=== PATIENT | female | born 1950 | race African-American/Black ===

== ENCOUNTER 2016-09-18 09:07 | Inpatient (IN) | payer OTHER, MEDICARE ==
[~2016-09-18] VITALS: Ht 162.6 cm; Wt 80.0 kg
[2016-11-30] MEDS ORDERED: MULT1TAB59 PO (09:43)
[2016-11-30] MEDS ORDERED: METF1000 PO (09:43)
[2016-11-30] MEDS ORDERED: LISI40TA PO (09:43)
[2016-11-30] MEDS ORDERED: ATOR40TA16 PO (09:43)
[2016-11-30] MEDS ORDERED: METO100T PO (09:43)
[2016-11-30] MEDS ORDERED: GLIP10TA6 PO (09:43)
[2016-11-30] MEDS ORDERED: HYDR25TA5 PO (09:43)
[2016-12-01] MEDS ORDERED: SODIUM CHLORID 0.9% 500 ML IV PRN (06:30)
[2016-12-01] MEDS ORDERED: HEPARIN SODIUM - SQ 10,000 UNITS/ML VIAL SQ SCH (06:30)
[2016-12-01] MEDS ORDERED: METOPROLOL TARTRATE 25 MG TAB PO PRN (06:30)
[2016-12-01] MEDS ORDERED: LACTATED RINGER'S 1000 ML IV PRN (06:30)
[2016-12-01] MEDS ORDERED: INSULIN HUMAN REGULAR 1,000 UNITS/10 ML VIAL SQ PRN (06:30)
[2016-12-01] MEDS ORDERED: ceFAZolin 2 GM PREMIX 50 ML IV SCH (06:30)
[2016-12-01] MEDS ORDERED: POVIDONE IODINE 5% (ANTISEPSIS KIT) 4 APPLICATIONS EACH NARE PRN (06:30)
[2016-12-01] MEDS ORDERED: CHLORHEXIDINE GLUCONATE 2 % 1 PACK (2 CLOTHS) TOPICAL PRN (06:30)
[2016-12-01 06:49] VITALS: BP 208/81; PULSE 61; RESP 16; TEMP 98.7; O2SAT 99
[2016-12-01] MEDS ORDERED: METOPROLOL TARTRATE 25 MG TAB ONE (07:01)
[2016-12-01] MEDS ORDERED: METOPROLOL TARTRATE 100 MG TAB PO ONE (07:15)
[2016-12-01] MEDS ORDERED: THROMBIN (TOPICAL) 5,000 UNIT VIAL ONE (07:25)
[2016-12-01] MEDS ORDERED: GELFOAM SIZE 100 ONE (07:25)
[2016-12-01] MEDS ORDERED: fentaNYL CITRATE 250 MCG/5 ML AMP ONE ×2 (07:59→12:02)
[2016-12-01] MEDS ORDERED: ACETAMINOPHEN 1000 MG/100 ML VIAL IV ONE (07:59)
[2016-12-01] MEDS ORDERED: DEXAMETHASONE SOD PHOS 4 MG/ML VIAL ONE (07:59)
[2016-12-01] MEDS ORDERED: MIDAZOLAM HCL 2 MG/2 ML VIAL ONE (07:59)
[2016-12-01] MEDS ORDERED: ceFAZolin INJ 1,000 MG VIAL IV ONE (11:28)
[2016-12-01] MEDS ORDERED: LORazepam 0.5 MG TAB PO PRN (11:30)
[2016-12-01] MEDS ORDERED: NALOXONE HCL 0.4 MG/ML AMP IV PRN (11:30)
[2016-12-01] MEDS ORDERED: diphenhydrAMINE HCL 25 MG CAP PO PRN (11:30)
[2016-12-01] MEDS ORDERED: oxyCODONE/ACETAMINOPHEN 5 MG/325 MG TAB PO PRN (11:30)
[2016-12-01] MEDS ORDERED: SODIUM CHLORIDE 0.9% FLUSH 10 ML FLUSH IV FLUSH PRN (11:30)
[2016-12-01] MEDS ORDERED: ONDANSETRON HCL 4 MG/2 ML VIAL IVP PRN (11:30)
[2016-12-01] MEDS ORDERED: LACTATED RINGER'S 1000 ML INJ 1,000 ML IV ONE (12:00)
[2016-12-01] MEDS ORDERED: PROPOFOL 200 MG/20 ML AMP IV ONE (12:00)
[2016-12-01] MEDS ORDERED: KETOROLAC TROMETHAMINE 60 MG/2 ML (IM) VIAL IM ONE (12:00)
[2016-12-01] MEDS ORDERED: NEOSTIGMINE 3 MG/3 ML SYR IV ONE (12:00)
[2016-12-01] MEDS ORDERED: VECURONIUM BROMIDE 10 MG VIAL IV ONE (12:00)
[2016-12-01] MEDS ORDERED: ONDANSETRON HCL 4 MG/2 ML VIAL IV PUSH ONE (12:00)
[2016-12-01] MEDS ORDERED: PHENYLEPH/NS 1000 MCG/10 ML SYR IV ONE (12:00)
[2016-12-01] MEDS: KETOROLAC TROMETHAMINE 30 MG/ML (IVP) VIAL IVP SCH ×2 (12:25→20:20)
[2016-12-01] MEDS: MORPHINE SULFATE 30 MG/30 ML PCA IV SCH (12:25)
[2016-12-01] MEDS: D5-1/2 NS + KCL 20 MEQ INJ 1,000 ML IV SCH (12:25)
[2016-12-01] MEDS ORDERED: *morphine SULFATE 8 MG/ML PERIprocedure ONLY ONE (12:28)
[2016-12-01] MEDS ORDERED: DO NOT ADM ANY ANTICOAGULANT DRUGS PRN (13:15)
[2016-12-01 13:27] VITALS: BP 152/75; PULSE 100; RESP 18; TEMP 98; O2SAT 95
[2016-12-01 16:00] VITALS: BP 151/73; PULSE 79; RESP 16; TEMP 99; O2SAT 97
[2016-12-01] MEDS: INSULIN NovoLIN REGULAR SUPPLEMENTAL SCALE SQ SCH ×2 (16:00→21:00)
--- NOTE | 2016-12-01 16:07 | PD.ONC.PN ---
Subjective Subjective Remarks post op note pt is resting in bed with daughter at bedside states having abd pain but using STUNT DOUBLE denies any n/v Objective Data Date Time Temp Pulse Resp B/P Pulse Ox O2 Delivery O2 Flow Rate FiO2 12/01/16 13:27 98.0 100 18 152/75 95 12/01/16 13:00 97.8 106 20 149/68 97 Room Air 12/01/16 12:45 97 20 133/62 96 Room Air 12/01/16 12:30 100 20 146/70 97 Room Air 12/01/16 12:25 20 12/01/16 12:15 100 20 141/64 96 Room Air 12/01/16 12:00 103 20 158/76 97 Room Air 12/01/16 11:52 97.6 107 20 168/79 100 Simple Mask 6 12/01/16 06:49 98.7 61 16 208/81 99 12/01/16 12/01/16 12/01/16 07:00 15:00 23:00 Intake Total 2140 ml Output Total 700 ml Balance 1440 ml Laboratory Results Laboratory Tests Test 12/01/16 12/01/16 06:35 07:48 Blood Type O POSITIVE O POSITIVE Antibody Screen NEGATIVE Crossmatch Leukocyte-Reduced Red Blood Cells Blood Bank Comment Administered Medications Medications (Trade) Dose Ordered Sig/Travis Route PRN Reason Start Time Stop Time Status Last Admin Dose Admin Potassium Chloride/Dextrose/ Sod Cl (D5-1/2 NS + KCl 20 Meq Inj) 1,000 ml @ 75 mls/hr [id number] IV 12/01/16 14:00 12/01/16 12:25 Morphine Sulfate (Morphine 1 Mg/ ml STUNT DOUBLE) 30 mg UNSCH IV 12/01/16 11:30 12/01/16 12:25 Objective Remarks GENERAL: Well-nourished, well-developed patient. SKIN: Warm and dry. HEAD: Normocephalic. EYES: No scleral icterus. No injection or drainage. CARDIOVASCULAR: Regular rate and rhythm without murmurs. RESPIRATORY: Breath sounds equal bilaterally. No accessory muscle use. GASTROINTESTINAL: dressing c/d/i EXTREMITIES: teds and scds MUSCULOSKELETAL: Adequate muscle tone. NEUROLOGICAL: No obvious focal deficit. Awake, alert, and oriented x3. PSYCHIATRIC: Appropriate mood and affect; insight and judgment normal. Assessment/Plan Problem List: (1) Post-operative state Status: Acute Plan: s/p xlap hysterectomy with bso post op orders in chart STUNT DOUBLE for pain scheduled Toradol D/C arredondo on POD #2 ADAT OOB to chair IS to bedside Laurie May Dec 01, 2016 16:07
[2016-12-01 20:00] VITALS: BP 151/70; PULSE 97; RESP 18; TEMP 99.4; O2SAT 96
[2016-12-01] MEDS: PCA - TOTAL MG MORPHINE DELIVERED PER SHIFT SCH ×2 (20:28→22:00)
[2016-12-01] MEDS: SODIUM CHLORIDE 0.9% FLUSH 10 ML FLUSH IV FLUSH SCH (20:29)
[2016-12-01] MEDS: LISINOPRIL 20 MG TAB PO SCH (21:59)
[2016-12-01] MEDS: ATORVASTATIN 40 MG TAB PO SCH (21:59)
[2016-12-01] MEDS: METOPROLOL TARTRATE 100 MG TAB PO SCH (22:00)
--- NOTE | 2016-12-01 22:56 | MP ---
cc: ALMA CARTER MD DATE OF SURGERY: 12/01/2016 PREOPERATIVE DIAGNOSIS: 1. Endometrial adenocarcinoma 2. Markedly enlarged uterus with what appears to be multiple leiomyomas. POSTOPERATIVE DIAGNOSIS: 1. Endometrial adenocarcinoma 2. Markedly enlarged uterus with what appears to be multiple leiomyomas. PROCEDURE Exploratory laparotomy, total abdominal hysterectomy, bilateral salpingo-oophorectomy. SURGEON Alma Carter MD. JOURNEYMAN PAINTER Arthur project assistant. ANESTHESIA: General endotracheal anesthesia. ESTIMATED BLOOD LOSS: 250 cc. IV FLUIDS 1600 cc URINE OUTPUT: 450 cc HISTORY This is a 66-year-old female with postmenopausal bleeding, thickened endometrial stripe. Imaging showed a markedly enlarged uterus, multiloculated with a pedunculated mass of the right side of the fundus, all totaling approximately 20 cm, extending above the umbilicus. She has been counseled regarding recommendations for treatment. There has been some delays due to her social calendar but also because of some delays in getting her cardiac clearance but presents now for surgical management. She is seen again in the preop holding area where the findings and plan of care are again discussed. Questions were answered. She expressed good understanding and would like to move forward with surgery. FINDINGS AT THE TIME OF SURGERY: As the CAT scan suggested, multilobulated uterus, markedly enlarged, changes suggestive of leiomyomas with a single large pedunculated mass off the right fundus. I would estimate was approximately 10 cm in diameter. The cancer of on preliminary assessment was essentially exophytic. It was about 4 cm but it was polypoid extending into the endometrial cavity. There was no overt detectable evidence of myometrial invasion. At the time of surgery, there were no appreciably enlarged pelvic or para-aortic lymph nodes. The peritoneal surfaces were smooth. There were no peritoneal implants. The omentum grossly appeared normal. The large and small bowel and adjacent mesentery and surrounding peritoneum were normal. Overlying the dome of the liver, there was a fullness compressible sponging consistency that was not palpably suggestive of neoplasm. There were no implants overt tumor. Statement of complexity, modified should be applied, given that the uterus was well above 250 grams, increasing the complexity of the case. DESCRIPTION OF PROCEDURE: The patient was taken to the operating room, placed in dorsal lithotomy position, after general endotracheal anesthesia was administered. Time-out was undertaken. The patient was identified by sight, recognition and hospital ID bracelet and the proposed procedure was reviewed and confirmed. She was carefully positioned in Fady stirrups. Her arms were secured to the sides. She was prepped and draped in sterile fashion. Wolff catheter placed in the bladder. Midline vertical incision made from the symphysis to the umbilicus, carried down to level of the fascia. The fascia was entered in the midline. The rectus muscles were . Peritoneal cavity was entered. Anatomy was explored and peritoneal washings were obtained for cytology. Lap pads and Bookwalter retractor was used to assist in surgical exposure. Right round ligament doubly suture ligated and transected. The anterior and posterior leaves of the broad ligament were opened. The right ureter was identified. The right infundibulopelvic ligament was isolated. The intervening peritoneum was opened. The infundibulopelvic ligament was doubly clamped, cut and suture ligated. The posterior peritoneum was opened along the right side of the uterus and cervix, and the right vesicouterine peritoneum was dissected off the lower uterine segment and cervix, and the uterine vessels were skeletonized. Attention was directed toward the left side where the left round ligament was doubly suture ligated and transected. The anterior and posterior leaves of the broad ligament were opened. Left ureter was identified, left infundibulopelvic ligament was isolated to the level of the pelvic brim where it was doubly clamped, cut, and suture-ligated. Posterior peritoneum opened along the left side of the uterus and the cervix and the left vesicouterine peritoneum was dissected off the lower uterine segment and cervix. The left uterine vessels were skeletonized. Now the uterine vessels were doubly clamped bilaterally. The uterus blanched due to compromise of the major blood supply and the uterine vessels were then cut and suture ligated x2 on each side. The cardinal, paracervical, and uterosacral ligaments were then clamped, cut, and suture-ligated in a stepwise fashion until curved Nails clamps could be placed below the cervix at lateral vaginal angles, and the specimen was removed by sharp dissection below the cervix the cervix from the upper vagina. The specimen was inspected. The entire cervix appeared to be removed, although it was attenuated. The cervix was long and narrow relative to the quite prominent uterus. The vaginal cuff was closed with interrupted [id number] 0 Vicryl sutures, starting at the lateral corner to a full thickness closure included the posterior uterosacral ligament and posterior peritoneum. They were tied securely. The vaginal cuff was closed with interrupted [id number] 0 Vicryl sutures. This rendered the fascia completely air tight and hemostatic. The pelvis was thoroughly irrigated. Small bleeders rendered hemostatic with bipolar cautery. Tierney hemostatic powder was placed across the pelvis. The lymph nodes were visibly and palpably inspected none of which were enlarged, and as per our agreement, no lymphadenectomy would be performed. Furthermore with a noninvasive tumor it was felt that the risk of metastatic disease was low such that full dissection would be associated with morbidity that exceeded benefit. There were no abnormal areas that were amenable for biopsy. Tierney hemostatic powder was placed across the vaginal cuff and lateral pelvic sidewalls. The lap pads were removed and the Bookwalter retractor was disassembled. Additional evaluation of the anatomy was performed with findings as described above. There were no remaining foreign objects in the peritoneal cavity. Preliminary counts were correct. It was felt that all reasonable surgical objectives had been completed. Attention was directed toward closing the abdominal wall. The abdominal wall was closed with 0 loop PDS in a running modified Smead-Ritchie fashion starting at the apices and meeting in the midpoint where the sutures were tied. Subcutaneous tissue was irrigated. Damien fascia reapproximated with 2-0 Vicryl sutures and then the skin edges closed with a running 3-0 Vicryl subcuticular. Steri-Strips were placed across the incisions followed by dry sterile dressing. She was turned to dorsal supine position. Final counts were correct and she was pending reversal of anesthesia when I left operating room to precede her to the Post Anesthesia Care Unit. MD YANET Kang/FIDELIA /11:54 AM /10:38 PM
[2016-12-02] VITALS (7 sets, daily range): BP systolic 99–169; BP diastolic 57–78; PULSE 63–80; RESP 16–20; TEMP 97.4–99.3; O2SAT 92–97
[2016-12-02] MEDS: D5-1/2 NS + KCL 20 MEQ INJ 1,000 ML IV SCH ×2 (01:00→15:20)
[2016-12-02] MEDS: KETOROLAC TROMETHAMINE 30 MG/ML (IVP) VIAL IVP SCH ×4 (01:02→21:12)
[2016-12-02] MEDS: PCA - TOTAL MG MORPHINE DELIVERED PER SHIFT SCH ×3 (05:23→22:36)
[2016-12-02] MEDS: INSULIN NovoLIN REGULAR SUPPLEMENTAL SCALE SQ SCH ×4 (06:12→21:18)
[2016-12-02 07:48] LABS: AUTOMATED NEUTROPHIL # 3.8 TH/MM3 (1.8-7.7); BASOPHIL % 0.4 % (0.0-2.0); EOSINOPHIL % 0.2 % (0.0-4.0); HEMATOCRIT 28.8 % (35.0-46.0); HEMO FLAGS DIFF FINAL; LYMPH % 30.3 % (9.0-44.0); LYMPHOCYTE # 1.9 TH/MM3 (1.0-4.8); MEAN CORPUSCULAR HEMOGLOBIN 28.4 PG (27.0-34.0); MEAN CORPUSCULAR HGB CONC 32.6 % (32.0-36.0); NEUT % 60.1 % (16.0-70.0); PLATELET COUNT 128 TH/MM3 (150-450); RED BLOOD COUNT 3.31 MIL/MM3 (4.00-5.30); RED CELL DISTRIBUTION WIDTH 13.8 % (11.6-17.2); WHITE BLOOD COUNT 6.3 TH/MM3 (4.0-11.0)
[2016-12-02 08:36] LABS: BICARBONATE 24.2 MEQ/L (21.0-32.0); POTASSIUM 3.8 MEQ/L (3.5-5.1)
--- NOTE | 2016-12-02 08:49 | PD.ONC.PN ---
Subjective Subjective Remarks POD #1 pt resting in bed states pain is controlled with DIRECTOR LOAN denies any N/V drinking fluids Objective Data Date Time Temp Pulse Resp B/P Pulse Ox O2 Delivery O2 Flow Rate FiO2 12/02/16 08:00 97.6 72 18 99/60 93 12/02/16 05:23 16 12/02/16 04:00 97.9 63 16 128/60 97 12/02/16 00:00 99.0 80 16 121/57 97 12/01/16 22:00 16 12/01/16 20:00 99.4 97 18 151/70 96 12/01/16 16:00 99.0 79 16 151/73 97 12/01/16 13:27 98.0 100 18 152/75 95 12/01/16 13:00 97.8 106 20 149/68 97 Room Air 12/01/16 12:45 97 20 133/62 96 Room Air 12/01/16 12:30 100 20 146/70 97 Room Air 12/01/16 12:25 20 12/01/16 12:15 100 20 141/64 96 Room Air 12/01/16 12:00 103 20 158/76 97 Room Air 12/01/16 11:52 97.6 107 20 168/79 100 Simple Mask 6 Result Diagram: 12/02/16 0604 12/02/16 0604 Laboratory Results Laboratory Tests Test 12/02/16 06:04 White Blood Count 6.3 TH/MM3 Red Blood Count 3.31 MIL/MM3 Hemoglobin 9.4 GM/DL Hematocrit 28.8 % Mean Corpuscular Volume 87.0 FL Mean Corpuscular Hemoglobin 28.4 PG Mean Corpuscular Hemoglobin 32.6 % Concent Red Cell Distribution Width 13.8 % Platelet Count 128 TH/MM3 Mean Platelet Volume 9.0 FL Neutrophils (%) (Auto) 60.1 % Lymphocytes (%) (Auto) 30.3 % Monocytes (%) (Auto) 9.0 % Eosinophils (%) (Auto) 0.2 % Basophils (%) (Auto) 0.4 % Neutrophils # (Auto) 3.8 TH/MM3 Lymphocytes # (Auto) 1.9 TH/MM3 Monocytes # (Auto) 0.6 TH/MM3 Eosinophils # (Auto) 0.0 TH/MM3 Basophils # (Auto) 0.0 TH/MM3 CBC Comment DIFF FINAL Differential Comment Sodium Level 135 MEQ/L Potassium Level 3.8 MEQ/L Chloride Level 101 MEQ/L Carbon Dioxide Level 24.2 MEQ/L Anion Gap 10 MEQ/L Blood Urea Nitrogen 14 MG/DL Creatinine 0.89 MG/DL Estimat Glomerular Filtration 77 ML/MIN Rate Random Glucose 119 MG/DL Calcium Level 8.0 MG/DL Administered Medications Medications (Trade) Dose Ordered Sig/Travis Route PRN Reason Start Time Stop Time Status Last Admin Dose Admin Atorvastatin Calcium (Lipitor) 40 mg HS PO 12/01/16 21:00 12/01/16 21:59 Metoprolol Tartrate (Lopressor) 100 mg BID PO 12/01/16 21:00 12/01/16 22:00 Lisinopril 40 mg 40 mg BID PO 12/01/16 21:00 12/01/16 21:59 Potassium Chloride/Dextrose/ Sod Cl (D5-1/2 NS + KCl 20 Meq Inj) 1,000 ml @ 75 mls/hr [id number] IV 12/01/16 14:00 12/02/16 01:00 Sodium Chloride (NS Flush) 2 ml UNSCH PRN IV FLUSH FLUSH AFTER USING IV ACCESS 12/01/16 11:30 12/02/16 01:02 Sodium Chloride (NS Flush) 2 ml BID IV FLUSH 12/01/16 21:00 12/01/16 20:29 Ketorolac Tromethamine (Toradol Inj) 15 mg Q6H IVP 12/01/16 14:00 12/04/16 08:01 12/02/16 01:02 Morphine Sulfate (Morphine 1 Mg/ ml DIRECTOR LOAN) 30 mg UNSCH IV 12/01/16 11:30 12/01/16 12:25 DIRECTOR LOAN Dosage Infused (Pha) 1 Q8HR .XX 12/01/16 14:00 12/02/16 05:23 Objective Remarks GENERAL: Well-nourished, well-developed patient. SKIN: Warm and dry. HEAD: Normocephalic. EYES: No scleral icterus. No injection or drainage. CARDIOVASCULAR: Regular rate and rhythm without murmurs. RESPIRATORY: Breath sounds equal bilaterally. No accessory muscle use. GASTROINTESTINAL: dressing C/D/I EXTREMITIES: teds and scds MUSCULOSKELETAL: Adequate muscle tone. NEUROLOGICAL: No obvious focal deficit. Awake, alert, and oriented x3. PSYCHIATRIC: Appropriate mood and affect; insight and judgment normal. Assessment/Plan Problem List: (1) Post-operative state Status: Acute Plan: POD #1 s/p xlap hysterectomy with bso will continue DIRECTOR LOAN for pain OOB to chair today will d/c arredondo on POD #2 ok to ADAT anticipate D/C home on Wednesday Laurie May Dec 02, 2016 08:49
[2016-12-02] MEDS: SODIUM CHLORIDE 0.9% FLUSH 10 ML FLUSH IV FLUSH SCH ×2 (09:00→21:11)
[2016-12-02] MEDS: METOPROLOL TARTRATE 100 MG TAB PO SCH ×2 (09:00→21:11)
[2016-12-02] MEDS: LISINOPRIL 20 MG TAB PO SCH ×2 (09:00→21:11)
[2016-12-02] MEDS: MORPHINE SULFATE 30 MG/30 ML PCA IV SCH (09:20)
[2016-12-02] MEDS: HYDROCHLOROTHIAZIDE 25 MG TAB PO SCH (17:40)
[2016-12-02] MEDS: ATORVASTATIN 40 MG TAB PO SCH (21:10)
[2016-12-03] VITALS: BP 143/69; PULSE 65; RESP 16; TEMP 98.1; O2SAT 95
[2016-12-03] MEDS: KETOROLAC TROMETHAMINE 30 MG/ML (IVP) VIAL IVP SCH ×4 (02:25→20:53)
[2016-12-03 04:00] VITALS: BP_SYST 136; BP_SYST 143; BP_DIAS 69; PULSE 65; PULSE 68; RESP 16; TEMP 97.2; TEMP 98.1; O2SAT 95; O2SAT 96
[2016-12-03] MEDS: PCA - TOTAL MG MORPHINE DELIVERED PER SHIFT SCH (05:41)
[2016-12-03] MEDS: D5-1/2 NS + KCL 20 MEQ INJ 1,000 ML IV SCH (05:55)
[2016-12-03] MEDS: INSULIN NovoLIN REGULAR SUPPLEMENTAL SCALE SQ SCH ×4 (05:56→20:58)
[2016-12-03 08:25] VITALS: BP 179/82; PULSE 90; RESP 19; TEMP 98.7; O2SAT 94
--- NOTE | 2016-12-03 08:36 | PD.ONC.PN ---
Subjective Subjective Remarks POD #2 Pt is resting in bed no complaints Wolff has been discontinued and she has been OOB to urinate this morning denies any vomiting tolerating diet Objective Data Date Time Temp Pulse Resp B/P Pulse Ox O2 Delivery O2 Flow Rate FiO2 12/03/16 08:25 98.7 90 19 179/82 94 12/03/16 05:41 18 12/03/16 04:00 97.2 68 16 136/69 96 12/03/16 03:25 18 12/03/16 00:00 98.1 65 16 143/69 95 12/02/16 22:36 18 12/02/16 20:00 99.3 79 16 166/73 92 12/02/16 16:00 98.4 72 20 169/78 94 12/02/16 14:00 18 12/02/16 12:00 97.4 68 16 120/60 94 12/02/16 10:17 94 12/03/16 12/03/16 12/03/16 07:00 15:00 23:00 Intake Total 550 ml Output Total 1600 ml Balance -1050 ml Result Diagram: 12/02/16 0604 12/02/16 0604 Administered Medications Medications (Trade) Dose Ordered Sig/Travis Route PRN Reason Start Time Stop Time Status Last Admin Dose Admin Atorvastatin Calcium (Lipitor) 40 mg HS PO 12/01/16 21:00 12/02/16 21:10 Hydrochlorothiazide (Hydrodiuril) 25 mg DAILY PO 12/02/16 09:00 12/02/16 17:40 Metoprolol Tartrate (Lopressor) 100 mg BID PO 12/01/16 21:00 12/02/16 21:11 Lisinopril 40 mg 40 mg BID PO 12/01/16 21:00 12/02/16 21:11 Potassium Chloride/Dextrose/ Sod Cl (D5-1/2 NS + KCl 20 Meq Inj) 1,000 ml @ 75 mls/hr [id number] IV 12/01/16 14:00 12/03/16 05:55 Sodium Chloride (NS Flush) 2 ml UNSCH PRN IV FLUSH FLUSH AFTER USING IV ACCESS 12/01/16 11:30 12/02/16 01:02 Sodium Chloride (NS Flush) 2 ml BID IV FLUSH 12/01/16 21:00 12/02/16 21:11 Ketorolac Tromethamine (Toradol Inj) 15 mg Q6H IVP 12/01/16 14:00 12/04/16 08:01 12/03/16 02:25 Morphine Sulfate (Morphine 1 Mg/ ml COMPOSITION FLOOR LAYER) 30 mg UNSCH IV 12/01/16 11:30 12/02/16 09:20 COMPOSITION FLOOR LAYER Dosage Infused (Pha) 1 Q8HR .XX 12/01/16 14:00 12/03/16 05:41 Objective Remarks GENERAL: Well-nourished, well-developed patient. SKIN: Warm and dry. HEAD: Normocephalic. EYES: No scleral icterus. No injection or drainage. CARDIOVASCULAR: Regular rate and rhythm without murmurs. RESPIRATORY: Breath sounds equal bilaterally. No accessory muscle use. GASTROINTESTINAL: dressing C/D/I EXTREMITIES: TEDS MUSCULOSKELETAL: Adequate muscle tone. NEUROLOGICAL: No obvious focal deficit. Awake, alert, and oriented x3. PSYCHIATRIC: Appropriate mood and affect; insight and judgment normal. Assessment/Plan Problem List: (1) Post-operative state Status: Acute Plan: POD #2 s/p xlap hysterectomy with bso D/C COMPOSITION FLOOR LAYER today decrease IVF to KVO IS at bedside OOB to chair and ambulate today Percocet for pain anticipate D/C home tomorrow. Attending Statement Discussed with Dr. Mobley and he is in agreement. Laurie May Dec 03, 2016 08:36
[2016-12-03] MEDS: HYDROCHLOROTHIAZIDE 25 MG TAB PO SCH (08:47)
[2016-12-03] MEDS: METOPROLOL TARTRATE 100 MG TAB PO SCH ×2 (08:47→20:53)
[2016-12-03] MEDS: LISINOPRIL 20 MG TAB PO SCH ×2 (08:47→20:52)
[2016-12-03] MEDS: SODIUM CHLORIDE 0.9% FLUSH 10 ML FLUSH IV FLUSH SCH ×2 (09:00→21:00)
[2016-12-03] MEDS: SIMETHICONE 125 MG CHEWABLE TAB PO SCH ×2 (10:45→17:27)
[2016-12-03 12:55] VITALS: BP 186/78; PULSE 81; RESP 20; TEMP 98.5; O2SAT 94
[2016-12-03 16:34] VITALS: BP 178/83; PULSE 72; RESP 20; TEMP 98.5; O2SAT 97
[2016-12-03] MEDS: oxyCODONE/ACETAMINOPHEN 5 MG/325 MG TAB PO PRN (17:27)
[2016-12-03 20:00] VITALS: BP 128/71; PULSE 74; RESP 16; TEMP 97; O2SAT 94
[2016-12-03] MEDS: ATORVASTATIN 40 MG TAB PO SCH (20:53)
[2016-12-04] VITALS: BP 124/71; PULSE 67; RESP 16; TEMP 96.6; O2SAT 96
[2016-12-04] MEDS: SIMETHICONE 125 MG CHEWABLE TAB PO SCH ×2 (01:00→09:58)
[2016-12-04] MEDS: KETOROLAC TROMETHAMINE 30 MG/ML (IVP) VIAL IVP SCH ×2 (02:00→09:58)
[2016-12-04 04:00] VITALS: BP 163/74; PULSE 74; RESP 16; TEMP 97.7; O2SAT 96
[2016-12-04] MEDS: oxyCODONE/ACETAMINOPHEN 5 MG/325 MG TAB PO PRN (06:04)
[2016-12-04] MEDS: D5-1/2 NS + KCL 20 MEQ INJ 1,000 ML IV SCH (06:04)
[2016-12-04] MEDS: INSULIN NovoLIN REGULAR SUPPLEMENTAL SCALE SQ SCH (06:30)
[2016-12-04 08:12] VITALS: BP 140/65; PULSE 65; RESP 20; TEMP 96.1; O2SAT 94
[2016-12-04] MEDS ORDERED: OXYC1TAB63 PO (08:43)
[2016-12-04] MEDS: SODIUM CHLORIDE 0.9% FLUSH 10 ML FLUSH IV FLUSH SCH (09:59)
[2016-12-04] MEDS: METOPROLOL TARTRATE 100 MG TAB PO SCH (09:59)
[2016-12-04] MEDS: HYDROCHLOROTHIAZIDE 25 MG TAB PO SCH (09:59)
[2016-12-04] MEDS: LISINOPRIL 20 MG TAB PO SCH (09:59)
--- NOTE | 2016-12-06 18:45 | MD ---
cc: JACQUIE HESS KELLY L. MD ADMISSION DATE: 12/01/2016 DISCHARGE DATE: 12/04/2016 PROCEDURE: 12/01/2016, exploratory laparotomy, total abdominal hysterectomy bilateral salpingo-oophorectomy. DIAGNOSIS: 1. Endometrial cancer. 2. Multiple leiomyomas. HOSPITAL COURSE: She did well during hospitalization. She progressed satisfactorily such that by postoperative day #3 she was tolerating solid intake. She was voiding without difficulty. She was ambulating out of bed without necessity of assistance and was passing flatus. No nausea, vomiting. Pain adequately controlled. She has met criteria for discharge to home. OBJECTIVE FINDINGS: Pathology shows endometrial cancer arising from a polyp 4.5 cm, grade 2 completely exophytic in that there was no myometrial invasion. There are multiple markedly enlarged leiomyomas. LABORATORY STUDIES: No labs on the date of admission. In's and out's: 1787 / 1500. PHYSICAL EXAMINATION: VITAL SIGNS: Afebrile, pulse 65-74, respirations 16-20, blood pressure 124-178 / 65-83, O2 saturations greater than equal to 94%. LUNGS: Clear to auscultation. CARDIOVASCULAR: Regular rate and rhythm. ABDOMEN: Soft. Incision clean and dry. ROADABILITY MACHINE OPERATOR: No bleeding. EXTREMITIES: Nontender. ASSESSMENT: Postop day #3. FINDINGS AT THE TIME OF SURGERY: Preliminary pathology discussed reviewed activities restrictions covered questions were answered. She expressed good understanding. Overall she is doing well seems to meet criteria for discharge to home. PLAN: Therefore, I anticipate discharge to home. She is to call our office to ensure she has a followup scheduled in two weeks. She is to resume her prior medication but has been advised that she take half her dose of metformin and glipizide until she is on a full regular diet and her activity increases. She has a prescription for Percocet for pain. Our office number was made available should she have any questions or problems in the interim. MD YANET Kang/WES /8:51 AM /6:38 PM
== END 2016-12-04 12:10 | disposition home or self-care (01) | DRG 741 ==
LOC: HSDI 12-01 06:05 → HOCA 12-01 13:09
PROVIDERS: ADMIT Obstetrics & Gynecology Gynecologic Oncology; ATTEND Obstetrics & Gynecology Gynecologic Oncology
PROC: 0UTC0ZZ Resection of Cervix, Open Approach (ICD-10-PCS; 2016-12-01)
PROC: 0UT20ZZ Resection of Bilateral Ovaries, Open Approach (ICD-10-PCS; 2016-12-01)
PROC: 0UB70ZZ Excision of Bilateral Fallopian Tubes, Open Approach (ICD-10-PCS; 2016-12-01)
PROC: 0UT90ZZ Resection of Uterus, Open Approach (ICD-10-PCS; principal; 2016-12-01 08:16)
DX: C54.1 Malignant neoplasm of endometrium (principal); D25.9 Leiomyoma of uterus, unspecified; N85.2 Hypertrophy of uterus; N95.0 Postmenopausal bleeding
CPT/HCPCS: 80048; 82948; 85025; 86850; 86900; 86901; 86920; 88112; 88305; 88307; 88309; 88311; 88329; 88331; 94150; J0131; J0690; J1100; J1644; J1885; J2250; J2270; J2370; J2405; J2710; J3010; J3480; J7120